=== PATIENT | female | born 1965 | race Caucasian/White ===

== ENCOUNTER 2018-12-28 13:57 | Emergency (ER) | payer MEDICARE, OTHER ==
[~2018-12-28] VITALS: Ht 162.6 cm; Wt 49.9 kg
[~2018-12-28 13:57] MED LIST: Ambien10 MG PO; BENZ2; CALCAVITD PO; CARB200; CEPH500 PO; CHOL10002; CITA20 PO; CLON1; Cerovite Advan1 EACH PO; Citalopram HBr20 MG PO; DIPH50 PO; DOCU100; DOCU100 PO; FANAPT6 MG PO; FLUPHENAZINE HCL; HYDACE5325 PO; HYDPAM50 PO; IBUP800 PO; ILOPERIDONE; LEVSOD100; LEVSOD50 PO; LORA1; MULVITMINE PO; NORETHINDRONE PO; Naproxen500 MG PO; PERP2 PO; QUET200; QUET300 PO; QUETIAPINE FUM400 MG PO; RANI150 PO; SILSUL1TC TOP; TRAZ50 PO; ZIPR80; Zolpidem Tartra10 MG PO
== END 2018-12-28 16:04 | disposition home or self-care (01) ==
LOC: ER 13:57
DX: F20.9 Schizophrenia, unspecified (principal); F17.210 Nicotine dependence, cigarettes, uncomplicated
CPT/HCPCS: 99284

== ENCOUNTER 2019-01-16 14:08 | Observation (INO) | payer MEDICARE, OTHER ==
[~2019-01-16] VITALS: Ht 162.6 cm; Wt 57.1 kg
[~2019-01-16 14:08] MED LIST changes: +DIVA500ER PO; +[UNRECOGNIZED DRUG - OTHER] PO
[2019-01-16 15:59] LABS: BASOPHILS ABSOLUTE AUTO 0.03 K/mm3 (0.00-0.23); BASOPHILS PERCENT AUTO 0 % (0-2); EOSINOPHILS ABSOLUTE AUTO 0.14 K/mm3 (0.00-0.68); EOSINOPHILS PERCENT AUTO 1 % (0-6); Hematocrit 42.2 % (33.0-51.0); Hemoglobin 14.1 g/dL (11.5-16.0); IMMATURE GRAN ABSOLUTE AUTO 0.05 K/mm3 (0.00-0.10); IMMATURE GRAN PERCENT AUTO 1 % (0-1); LYMPHOCYTES ABSOLUTE AUTO 2.24 K/mm3 (0.84-5.20); LYMPHOCYTES PERCENT AUTO 22 % (21-46); MONOCYTES ABSOLUTE AUTO 0.79 K/mm3 (0.16-1.47); MONOCYTES PERCENT AUTO 8 % (4-13); Mean Corpuscular HGB 30.7 pg (26.0-34.0); Mean Corpuscular HGB Conc 33.4 g/dL (31.5-36.5); Mean Corpuscular Volume 92 fL (80-100); Mean Platelet Volume 11.7 fL (9.1-12.4); NEUTROPHILS ABSOLUTE AUTO 7.03 K/mm3 (1.96-9.15); NEUTROPHILS PERCENT AUTO 68 % (41-73); Platelet Count 207 K/mm3 (150-400); RDW Coefficient Variation 12.2 % (11.7-14.2); RDW Standard Deviation 40.7 fL (35.1-46.3); Red Blood Cell Count 4.59 M/mm3 (3.80-5.20); White Blood Cell Count 10.28 K/mm3 (4.00-11.30)
[2019-01-16 16:29] LABS: Alanine Aminotransfer (ALT/SGP 24 U/L (12-78); Albumin, Blood 3.2 g/dL (3.4-5.0); Albumin/Globulin Ratio 0.9 (0.8-1.8); Alk Phos 50 U/L (50-136); Anion Gap 8 mmol/L (6-16); Aspartate Aminotrans (AST/SGOT 19 U/L (12-37); Bilirubin, Total 0.2 mg/dL (0.1-1.0); Blood Urea Nitrogen 12 mg/dL (8-24); Bun/Creatinine Ratio 22.6 (12.0-20.0); CO2, Blood 26 mmol/L (21-32); Calcium, Blood 8.9 mg/dL (8.5-10.1); Chloride, Blood 105 mmol/L (98-108); Creatinine, Blood 0.53 mg/dL (0.40-1.00); Ethanol (Alcohol), Blood, Med 4 mg/dL; Globulin, Blood 3.4 g/dL (2.2-4.0); Glomerular Filtration Rate >60 (60-); Glucose, Blood 98 mg/dL (70-99); Potassium, Blood 3.5 mmol/L (3.5-5.5); Sodium, Blood 139 mmol/L (136-145); Total Protein, Blood 6.6 g/dL (6.4-8.2)
[2019-01-16 16:36] LABS: Acetaminophen, Random <2.0 ug/mL (10.0-30.0)
[2019-01-16 21:50] LABS: Valproic Acid <3.0 ug/mL (50.0-100.0)
--- NOTE | 2019-01-17 08:41 | NUR ---
[facility] patient with [facility] in [place]. [employer] support worker reported patient was coming to ER due to severe decompensation of her mental illness.
[2019-01-17 14:46] LABS: Source, Urine Clean Catch
[2019-01-17 14:56] LABS: Appearance, Urine Clear (Clear); Bilirubin, Urine Neg (Neg); Blood, Urine Neg (Neg); Color, Urine Yellow (P-Yellow); Glucose Qualitative, Urine Neg (Neg); Ketones, Urine Neg (Neg); Leukocyte Esterase, Urine 1+ (Neg); Nitrite, Urine Neg (Neg); Protein, Urine Neg (Neg); Urobilinogen, Urine NORM (Normal)
[2019-01-17 15:11] LABS: Bacteria Few /hpf; Red Blood Cells, Urine 0-2 /hpf (0-2); Squamous Epithelial Cells Few /hpf (Few)
[2019-01-17 15:15] LABS: U Amphetamine Screen Not Detected; U Barbituate Screen Not Detected; U Benzodiazapine Screen Not Detected; U Cannabinoids Screen Not Detected; U Cocaine Screen Not Detected; U Methadone Screen Not Detected; U Methamphetamine Screen Not Detected; U Opiates Screen Not Detected; U Phencyclidine Screen Not Detected
[2019-01-17 15:16] LABS: U Buprenorphine Screen Not Detected; U Oxycodone Screen Not Detected; U Propoxyphene Screen Not Detected
== END 2019-01-23 14:25 ==
LOC: ER 14:08 → EOR 14:09
PROVIDERS: Emergency Medicine; ADMIT Internal Medicine
DX: F25.9 Schizoaffective disorder, unspecified (principal); F17.210 Nicotine dependence, cigarettes, uncomplicated; Z88.8 Allergy status to other drugs, medicaments and biological substances; Z79.899 Other long term (current) drug therapy
CPT/HCPCS: 36415; 80053; 80164; 81001; 81025; 84443; 85025; 87086; 99285; G0378; G0480

== ENCOUNTER 2019-01-23 17:40 | Observation (INO) | payer MEDICARE, OTHER ==
[~2019-01-23] VITALS: Ht 162.6 cm; Wt 47.6 kg
[2019-01-28] MEDS ORDERED: SAPHRIS10 MG SL (10:35)
[2019-02-04] MEDS ORDERED: QUET100 PO (16:18)
[2019-02-04] MEDS ORDERED: Depakote ER500 MG PO (16:18)
[2019-02-04] MEDS ORDERED: Colace100 MG PO (16:18)
[2019-02-04] MEDS ORDERED: FLUP5 PO (16:18)
== END 2019-02-04 16:40 | disposition home or self-care (01) ==
LOC: ER 17:40 → EOR 17:41
PROVIDERS: ADMIT Emergency Medicine
DX: F29 Unspecified psychosis not due to a substance or known physiological condition (principal); F25.9 Schizoaffective disorder, unspecified; F17.210 Nicotine dependence, cigarettes, uncomplicated; Z88.8 Allergy status to other drugs, medicaments and biological substances; Z79.899 Other long term (current) drug therapy
CPT/HCPCS: 99285; G0378; Q0163

== ENCOUNTER 2019-05-08 21:55 | Observation (INO) | payer MEDICARE, OTHER ==
[~2019-05-08] VITALS: Ht 160 cm; Wt 81.7 kg
[~2019-05-08 21:55] MED LIST changes: +Colace100 MG PO; +Depakote ER500 MG PO; +FLUP5 PO; +QUET100 PO; +SAPHRIS10 MG SL
[2019-05-09 00:55] LABS: U Amphetamine Screen Not Detected; U Barbituate Screen Not Detected; U Benzodiazapine Screen Not Detected; U Buprenorphine Screen Not Detected; U Cannabinoids Screen Not Detected; U Cocaine Screen Not Detected; U Methadone Screen Not Detected; U Methamphetamine Screen Not Detected; U Opiates Screen Not Detected; U Oxycodone Screen Not Detected; U Phencyclidine Screen Not Detected; U Propoxyphene Screen Not Detected
[2019-05-09 03:15] LABS: BASOPHILS ABSOLUTE AUTO 0.03 K/mm3 (0.00-0.23); BASOPHILS PERCENT AUTO 0 % (0-2); EOSINOPHILS ABSOLUTE AUTO 0.04 K/mm3 (0.00-0.68); EOSINOPHILS PERCENT AUTO 0 % (0-6); Hematocrit 43.2 % (33.0-51.0); Hemoglobin 14.7 g/dL (11.5-16.0); IMMATURE GRAN ABSOLUTE AUTO 0.04 K/mm3 (0.00-0.10); IMMATURE GRAN PERCENT AUTO 0 % (0-1); LYMPHOCYTES ABSOLUTE AUTO 2.45 K/mm3 (0.84-5.20); LYMPHOCYTES PERCENT AUTO 23 % (21-46); MONOCYTES ABSOLUTE AUTO 0.82 K/mm3 (0.16-1.47); MONOCYTES PERCENT AUTO 8 % (4-13); Mean Corpuscular HGB 31.5 pg (26.0-34.0); Mean Corpuscular Volume 93 fL (80-100); Mean Platelet Volume 10.8 fL (9.1-12.4); NEUTROPHILS ABSOLUTE AUTO 7.33 K/mm3 (1.96-9.15); NEUTROPHILS PERCENT AUTO 68 % (41-73); Platelet Count 296 K/mm3 (150-400); RDW Standard Deviation 41.3 fL (35.1-46.3); Red Blood Cell Count 4.66 M/mm3 (3.80-5.20); White Blood Cell Count 10.71 K/mm3 (4.00-11.30)
[2019-05-09 03:38] LABS: Alanine Aminotransfer (ALT/SGP 21 U/L (12-78); Albumin, Blood 3.4 g/dL (3.4-5.0); Alk Phos 67 U/L (50-136); Anion Gap 7 mmol/L (6-16); Aspartate Aminotrans (AST/SGOT 17 U/L (12-37); Bilirubin, Total 0.3 mg/dL (0.1-1.0); Blood Urea Nitrogen 14 mg/dL (8-24); Bun/Creatinine Ratio 20.8 (12.0-20.0); CO2, Blood 28 mmol/L (21-32); Calcium, Blood 8.7 mg/dL (8.5-10.1); Chloride, Blood 105 mmol/L (98-108); Creatinine, Blood 0.67 mg/dL (0.40-1.00); Ethanol (Alcohol), Blood, Med <3 mg/dL; Globulin, Blood 3.4 g/dL (2.2-4.0); Glomerular Filtration Rate >60 (60-); Glucose, Blood 104 mg/dL (70-99); Potassium, Blood 3.4 mmol/L (3.5-5.5); Sodium, Blood 140 mmol/L (136-145); Total Protein, Blood 6.8 g/dL (6.4-8.2)
[2019-05-09 04:34] LABS: Source, Urine Clean Catch
[2019-05-09 04:38] LABS: Bilirubin, Urine Neg (Neg); Blood, Urine Neg (Neg); Glucose Qualitative, Urine Neg (Neg); Ketones, Urine Neg (Neg); Leukocyte Esterase, Urine 1+ (Neg); Nitrite, Urine Neg (Neg); Protein, Urine Neg (Neg); Urobilinogen, Urine NORM (Normal)
[2019-05-09 04:42] LABS: Appearance, Urine Clear (Clear); Color, Urine Yellow (P-Yellow)
[2019-05-09 04:57] LABS: Bacteria Not Seen /hpf; Red Blood Cells, Urine Not Seen /hpf (0-2); Squamous Epithelial Cells Not Seen /hpf (Few); White Blood Cells, Urine Rare /hpf (0-5)
== END 2019-05-09 18:20 ==
LOC: ER 21:55 → EOR 21:56
PROVIDERS: ADMIT Emergency Medicine
DX: F25.0 Schizoaffective disorder, bipolar type (principal); F32.9 Major depressive disorder, single episode, unspecified; F17.210 Nicotine dependence, cigarettes, uncomplicated; Z79.899 Other long term (current) drug therapy; Z88.8 Allergy status to other drugs, medicaments and biological substances
CPT/HCPCS: 80053; 81001; 85025; 87086; 99285; G0378; G0480; Q0163; Q3014

== ENCOUNTER 2019-08-10 10:26 | Emergency (ER) | payer MEDICARE, OTHER ==
[~2019-08-10] VITALS: Ht 170.2 cm; Wt 88.5 kg
[~2019-08-10 10:26] MED LIST changes: +QUET25 PO
== END 2019-08-10 13:50 | disposition left against medical advice (07) ==
LOC: ER 10:26
DX: F25.0 Schizoaffective disorder, bipolar type (principal); F17.210 Nicotine dependence, cigarettes, uncomplicated; Z88.8 Allergy status to other drugs, medicaments and biological substances
CPT/HCPCS: 99283

== ENCOUNTER 2019-08-24 01:30 | Emergency (ER) | payer MEDICARE, OTHER ==
[~2019-08-24] VITALS: Ht 170.2 cm; Wt 92.1 kg
== END 2019-08-24 02:34 | disposition home or self-care (01) ==
LOC: ER 01:30
DX: F25.9 Schizoaffective disorder, unspecified (principal); Z59.0 Homelessness; F17.210 Nicotine dependence, cigarettes, uncomplicated; Z88.8 Allergy status to other drugs, medicaments and biological substances
CPT/HCPCS: 99282

== ENCOUNTER 2019-08-28 10:04 | Emergency (ER) | payer MEDICARE, OTHER ==
[~2019-08-28] VITALS: Ht 170.2 cm; Wt 90.7 kg
[2019-08-28] MEDS ORDERED: Benztropine Me0.5 MG (10:22)
[2019-08-28] MEDS ORDERED: QUETIAPINE FUMA25 MG PO (10:23)
[2019-08-28] MEDS ORDERED: Inderal 20 mg T20 MG GT (10:23)
== END 2019-08-28 11:44 | disposition home or self-care (01) ==
LOC: ER 10:04
DX: T68.XXXA Hypothermia, initial encounter (principal); Z59.0 Homelessness; F17.210 Nicotine dependence, cigarettes, uncomplicated
CPT/HCPCS: 99284

== ENCOUNTER 2019-08-29 01:31 | Emergency (ER) | payer MEDICARE, OTHER ==
[~2019-08-29] VITALS: Ht 170.2 cm; Wt 45.4 kg
[~2019-08-29 01:31] MED LIST changes: +Benztropine Me0.5 MG; +Inderal 20 mg T20 MG GT; +QUETIAPINE FUMA25 MG PO
== END 2019-08-29 05:02 | disposition home or self-care (01) ==
LOC: ER 01:31
DX: Z00.8 Encounter for other general examination (principal); Z59.0 Homelessness; F17.210 Nicotine dependence, cigarettes, uncomplicated; Z88.8 Allergy status to other drugs, medicaments and biological substances
CPT/HCPCS: 99282

== ENCOUNTER 2019-09-13 22:17 | Emergency (ER) | payer MEDICARE, OTHER ==
[~2019-09-13] VITALS: Ht 170.2 cm; Wt 36.3 kg
== END 2019-09-14 00:28 | disposition home or self-care (01) ==
LOC: ER 22:17
DX: M54.5 Low back pain (principal); G89.29 Other chronic pain; F20.9 Schizophrenia, unspecified; F17.210 Nicotine dependence, cigarettes, uncomplicated; Z59.0 Homelessness; Z88.8 Allergy status to other drugs, medicaments and biological substances; Z79.899 Other long term (current) drug therapy
CPT/HCPCS: 99283